=== PATIENT | female | born 1955 | race Caucasian/White ===

== ENCOUNTER 2019-04-28 19:02 | Emergency (ER) | payer MEDICARE, OTHER, SELFPAY ==
[~2019-04-28] VITALS: Ht 167.6 cm; Wt 60.6 kg
[2019-04-28] MEDS ORDERED: INHALERS (19:11)
[2019-04-28] MEDS ORDERED: LISI-167 PO (19:11)
[2019-04-28] MEDS ORDERED: AMLO10TA4 PO (19:11)
[2019-04-28] MEDS ORDERED: ALBUTEROL (19:11)
[2019-04-28] MEDS ORDERED: ASPI-515 PO (19:11)
[2019-04-28 19:31] VITALS: BP 139/80
== END 2019-04-28 20:05 | disposition home or self-care (01) ==
LOC: ED 19:20
DX: I10 Essential (primary) hypertension (principal); J44.9 Chronic obstructive pulmonary disease, unspecified; Z87.891 Personal history of nicotine dependence
CPT/HCPCS: 99281